=== PATIENT | female | born 1970 | race Two or more races ===

== ENCOUNTER 2016-10-07 09:19 | Observation (INO) | payer OTHER ==
[~2016-10-07 09:19] MED LIST: DEXAMETHASONE 4 MG/ML VIAL ONE; LIDOCAINE 2% 5 ML SDV ONE; LR 1,000 ML IV ONE; ONDANSETRON 4 MG/2 ML VIAL ONE; PHENAZOPYRIDINE HCL 200 MG TAB PO ONE; PROPOFOL 200 MG/20 ML VIAL ONE; ROCURONIUM 50 MG/5 ML VIAL ONE; ceFAZolin 2 GM/DEXTROSE 100 ML IV ONE; fentaNYL 250 MCG/5 ML INJ ONE
[2016-10-07] MEDS ORDERED: CEFAZOLIN 2 GM/DEXTROSE/100 ML BAG IV ONE (09:22)
[2016-10-07] MEDS ORDERED: PHENAZOPYRIDINE HCL 200 MG TAB ONE (09:22)
[2016-10-07] MEDS ORDERED: LIDOCAINE 1% 2 ML INJ ONE (09:40)
[2016-10-07] MEDS ORDERED: BUPIVACAINE/EPI 0.5% 30 ML SDV ONE (10:19)
[2016-10-07] MEDS ORDERED: MIDAZOLAM 2 MG/2 ML VIAL ONE (10:24)
[2016-10-07] MEDS ORDERED: ROCURONIUM 50 MG/5 ML VIAL ONE (11:03)
[2016-10-07] MEDS ORDERED: HYDROmorphONE/DILAUDID 2 MG/ML INJ ONE (11:32)
[2016-10-07] MEDS ORDERED: SUGAMMADEX SODIUM 200 MG/2 ML VIAL IVP ONE (12:10)
[2016-10-07] MEDS ORDERED: ALBUTEROL 60 PUFFS/8 GM MDI IH PRN (13:16)
[2016-10-07] MEDS ORDERED: HYDROCODONE/APAP 5/325 TAB PO PRN (13:17)
--- NOTE | 2016-10-07 13:21 | POSTOPPROG ---
Post Op Note Date of Operation: 10/07/16 Surgeon: Paulo Ortega Soaking Room Operator: Sara Caro Anesthesia: GET(General Endotracheal), IV Sedation (error no sedation) Pre-op Diagnosis: uterine fibroid, heavy menses Post-op Diagnosis: same Procedure: Robotic hyst, left ureterolysis, cysto Findings: Both ureters function at end of case. Inf/Abcess present in the surg proc area at time of surgery?: No EBL: 50-100 Complications: None
[2016-10-07] MEDS ORDERED: LR 1,000 ML IV SCH (13:30)
[2016-10-07] MEDS ORDERED: ONDANSETRON 4 MG/2 ML VIAL ONE (13:40)
--- NOTE | 2016-10-07 14:19 | GOP ---
[f rep st] OPERATIVE REPORT DATE OF OPERATION: 10/07/2016 SURGEON: Paulo Ortega MD [employer] TEACHER: Sara Caro CFA ANESTHESIA: General. PREOPERATIVE DIAGNOSIS: 1. Symptomatic uterine fibroid. 2. Menorrhagia. POSTOPERATIVE DIAGNOSIS: 1. Symptomatic uterine fibroid. 2. Menorrhagia. 3. Uterine prolapse. PROCEDURE PERFORMED: 1. Robotic-assisted total laparoscopic hysterectomy, bilateral salpingectomy. 2. Left ureterolysis. 3. Bilateral uterosacral ligament colpopexy. 4. Cystoscopy. FINDINGS: SPECIMENS: Uterus, bilateral tubes, and uterine fibroid. ESTIMATED BLOOD LOSS: 100 mL. DESCRIPTION OF PROCEDURE: The patient was taken to the operating room where she was identified. Ge neral anesthesia was administered and found to be adequate. She was placed in the lithotomy positio n and prepared and draped in normal sterile fashion. A [employer] uterine manipulator was placed into th e endometrial cavity and sutured to the cervix. A Darling catheter was then placed. A 1 cm infraumbilical incision was made with a scalpel. The Veress needle with the CO2 gas flowing was advanced into the peritoneal cavity. The abdomen was then insufflated with carbon dioxide gas. The 12 mm trocar followed by the laparoscope were then inserted. A very large fibroid was seen raffaele sing from the posterior aspect of the uterus filling the posterior cul-de-sac. The left fallopian tube was perseverated along the mesosalpinx. The utero-ovarian ligament, followe d by the round ligament were then cauterized and transected. The anterior leaf of the broad ligamen t was then incised over the left uterine vessels and across the cervix. The bladder was gently diss ected off the cervix and upper vagina. The left uterine vasculature was then cauterized and transec oscar. The exact same procedure was performed on the patient's right side. The fibroid was then most ly from the posterior aspect of the uterus. It was then further bivalved to aid in remova l through the vagina. The patient's left ureter was tracking right up against the cervix. As a res ult, a left ureterolysis was required from the pelvic brim all the way down to the bladder. The ure ter was gently dissected free and lateralized along this entire course down to the bladder. Once at had been accomplished, I was able to ligate the left uterine vasculature safely without injuring the ureter. A circumferential colpotomy incision was then made with the hot ziyad. I then scrubbed back into t he case to remove the specimen through the vagina. It did require some further morcellation. The vaginal cuff was then closed with a running locking suture of 0 V-Loc 180. The patient required a uterosacral ligament colpopexy because the fibroid had stretched the ligaments so the patient had uterine/vaginal cuff prolapse. The lateral aspects of the vaginal cuff were then sutured to the ip silateral uterosacral ligaments near their insertion into the coccygeal-sacrospinous ligament comple xes. The pelvis was irrigated with sterile saline and hemostasis was present. The left ureter was reexamined and was peristalsing normally lateral to the edge of the vaginal cuff. The robot was the n undocked. The fascia was closed with 0 Vicryl, skin with 4-0 Monocryl and surgical adhesive. Attention was then turned to the vagina. She had a vaginal laceration during removal of the specime n. This was closed with a running 2-0 Vicryl suture. Cystoscopy was then performed. Both ureters had vigorous jets of urine. There was no evidence of bladder nor urethral injury seen. No obvious pathology was seen. Vaginal packing was placed. Anesthesia was reversed. The patient taken to the PACU awake, in stable. COMPLICATIONS: None. DISPOSITION: Patient stable to PACU. /[id number]/MODL
[2016-10-07] MEDS: KETOROLAC 30 MG/1 ML SDV IVP PRN (18:00)
[2016-10-07] MEDS: ONDANSETRON 4 MG/2 ML VIAL IVP PRN ×2 (18:10→21:50)
[2016-10-08] MEDS: KETOROLAC 30 MG/1 ML SDV IVP PRN ×2 (00:09→05:46)
[2016-10-08 04:38] VITALS: RESP 16
[2016-10-08 05:43] LABS: HEMATOCRIT 29.5 % (38.0-47.0); HEMOGLOBIN 10.1 g/dL (12.6-16.3)
[2016-10-08 10:49] VITALS: BP 105/64; PULSE 84; TEMP 97.9; O2SAT 97
== END 2016-10-08 10:50 | disposition home or self-care (01) ==
LOC: F3N 09:19 → FOB 14:52
PROVIDERS: ADMIT Obstetrics & Gynecology; ATTEND Obstetrics & Gynecology
DX: D25.1 Intramural leiomyoma of uterus (principal); N92.0 Excessive and frequent menstruation with regular cycle; N39.3 Stress incontinence (female) (male); J45.909 Unspecified asthma, uncomplicated
CPT/HCPCS: 57282; 58571; G0378; J0690; J1100; J1170; J1885; J2250; J2405; J2704; J3010